=== PATIENT | female | born 2000 | race Caucasian/White ===

== ENCOUNTER 2024-06-07 17:21 | Emergency (ER) | payer OTHER, SELFPAY ==
[~2024-06-07] VITALS: Ht 160 cm; Wt 57.7 kg
[2024-06-07 20:55] VITALS: BP 131/68; TEMP 99.8; O2SAT 98
== END 2024-06-08 02:03 | disposition left against medical advice (07) ==
LOC: M ED 17:21
DX: Z53.21 Procedure and treatment not carried out due to patient leaving prior to being seen by health care provider (principal)